=== PATIENT | female | born 1975 ===

== ENCOUNTER 2021-12-14 10:46 | Emergency (ER) | payer MEDICAID, OTHER ==
[~2021-12-14] VITALS: Ht 149.9 cm; Wt 54.4 kg
[2021-12-14 10:51] VITALS: BP 139/88
[2021-12-14] MEDS ORDERED: ACETAMINOPHEN 325 MG TAB PO ONE (12:30)
== END 2021-12-14 16:20 | disposition left against medical advice (07) ==
LOC: ER 10:46
DX: S00.03XA Contusion of scalp, initial encounter (principal); S50.01XA Contusion of right elbow, initial encounter; S80.211A Abrasion, right knee, initial encounter; W18.39XA Other fall on same level, initial encounter; Y93.89 Activity, other specified; Y92.89 Other specified places as the place of occurrence of the external cause; Y99.8 Other external cause status
CPT/HCPCS: 73060; 73080; 73090